=== PATIENT | male | born 1985 | race Caucasian/White ===

== ENCOUNTER 2022-06-29 20:50 | Emergency (ER) | payer SELFPAY ==
[~2022-06-29] VITALS: Ht 165.1 cm; Wt 91.0 kg
[2022-06-29] MEDS ORDERED: KETOROLAC 60MG/2ML VIAL IM ONE (21:30)
[2022-06-29] MEDS ORDERED: CYCLOBENZAPRINE 10MG TABLET PO ONE (21:30)
[2022-06-29 22:03] VITALS: BP 169/92
[2022-06-29] MEDS ORDERED: IBUP-2028 MT (22:46)
[2022-06-29] MEDS ORDERED: CYCL10TA21 MT (22:46)
== END 2022-06-29 23:31 | disposition home or self-care (01) ==
LOC: ER 20:50
DX: M54.50 Low back pain, unspecified (principal)
CPT/HCPCS: 96372; 99283; J1885; Z7610